=== PATIENT | male | born 1960 | race Two or more races ===

== ENCOUNTER 2019-03-23 11:13 | Emergency (ER) | payer OTHER ==
[~2019-03-23] VITALS: Ht 175.3 cm; Wt 86.0 kg
[2019-03-23] MEDS ORDERED: LORAZEPAM 0.5MG TABLET PO ONE (11:45)
[2019-03-23 13:12] VITALS: BP 150/82
== END 2019-03-23 13:13 | disposition home or self-care (01) ==
LOC: ER 11:13
DX: F41.9 Anxiety disorder, unspecified (principal); R00.2 Palpitations; E11.9 Type 2 diabetes mellitus without complications; I10 Essential (primary) hypertension
CPT/HCPCS: 93005; 99283